=== PATIENT | female | born 1965 | race Hispanic/Latino ===

== ENCOUNTER → 2023-10-13 | Outpatient (CLI) | payer MEDICARE ==
[~2023-10-13] MED LIST: IOHEXOL 350 MG/ML 100ML INFUS..BTL IV ONE; METOPROLOL TARTRATE 1 MG/ML 5ML VIAL IV ONE
== END | disposition home or self-care (01) ==
LOC: RAH 08:04
PROVIDERS: ATTEND Student in an Organized Health Care Education/Training Program
DX: R07.9 Chest pain, unspecified (principal); M47.815 Spondylosis without myelopathy or radiculopathy, thoracolumbar region
CPT/HCPCS: 75574; J3490; Q9967

== ENCOUNTER → 2023-12-13 | Outpatient (CLI) | payer MEDICARE | END | disposition home or self-care (01) | LOC: SHCH 15:29 | PROVIDERS: ATTEND Student in an Organized Health Care Education/Training Program | DX: R07.9 Chest pain, unspecified (principal); I10 Essential (primary) hypertension; E78.5 Hyperlipidemia, unspecified; E11.9 Type 2 diabetes mellitus without complications | CPT/HCPCS: 93306 ==

== ENCOUNTER → 2025-02-19 | Outpatient (CLI) | payer MEDICARE ==
[~2025-02-19] MED LIST changes: -IOHEXOL 350 MG/ML 100ML INFUS..BTL IV ONE; +IOHEXOL-350 75 ML VIAL IV ONE; -METOPROLOL TARTRATE 1 MG/ML 5ML VIAL IV ONE
--- NOTE | 2025-02-19 15:58 | HMCIMG ---
CT LUMBAR SPINE WITHOUT AND WITH CONTRAST CT RECONSTRUCTIONS INDICATION: Back pain and lumbar radiculopathy. TECHNIQUE: Noncontrast helical CT of the lumbar spine obtained at 2 mm slice thickness with reconstructions in the coronal and sagittal planes before and after the intravenous administration of 75 mL of Omnipaque 350 contrast material. 3-D volume renderings included. CT was performed with one or more of the following dose reduction techniques: Automated exposure control, adjustment of the mA and/or kV according to patient size, or use of iterative reconstruction technique. COMPARISON: None FINDINGS: Normal lordosis is maintained. Vertebral bodies are normal in height, without evidence for fracture or compression deformity. No evidence for subluxation. Multilevel nominal anterior endplate osteophytic spurring. T12-L1: No significant disc protrusion/extrusion or moderate or high-grade neuroforaminal narrowing or central canal stenosis. No significant facet disease. L1-L2: No significant disc protrusion/extrusion or moderate or high-grade neuroforaminal narrowing or central canal stenosis. No significant facet disease. L2-L3: No significant disc protrusion/extrusion or moderate or high-grade neuroforaminal narrowing or central canal stenosis. No significant facet disease. L3-L4: No significant disc protrusion/extrusion or moderate or high-grade neuroforaminal narrowing or central canal stenosis. No significant facet disease. L4-L5: No significant disc protrusion/extrusion or moderate or high-grade neuroforaminal narrowing or central canal stenosis. Moderate bilateral facet disease. L5-S1:No significant disc protrusion/extrusion or moderate or high-grade neuroforaminal narrowing or central canal stenosis. Severe hypertrophic bilateral facet disease. The sacroiliac joints appear normal. The paravertebral soft tissues appear normal. IMPRESSION: Moderate bilateral facet disease at the L4-L5 level and severe hypertrophic bilateral facet disease at the L5-S1 level, without any significant disc herniation, neuroforaminal narrowing, or central canal stenosis.
== END | disposition home or self-care (01) ==
LOC: RAH 14:28
PROVIDERS: ATTEND Student in an Organized Health Care Education/Training Program
DX: M47.26 Other spondylosis with radiculopathy, lumbar region (principal); M47.818 Spondylosis without myelopathy or radiculopathy, sacral and sacrococcygeal region; M46.06 Spinal enthesopathy, lumbar region; M25.78 Osteophyte, vertebrae; M54.50 Low back pain, unspecified
CPT/HCPCS: 72133; Q9967